=== PATIENT | female | born 1980 | race Caucasian/White ===

== ENCOUNTER 2020-12-25 08:47 | Emergency (ER) | payer SELFPAY ==
[~2020-12-25] VITALS: Ht 162.6 cm; Wt 68.0 kg
[2020-12-25] MEDS ORDERED: KETOROLAC TROMETHAMINE 30 MG/ML VIAL IV STA (09:00)
[2020-12-25] MEDS ORDERED: SODIUM CHLORIDE 0.9% 1000ML 1,000 ML IV SCH (09:00)
[2020-12-25] MEDS ORDERED: ACETAMINOPHEN 325 MG TAB PO ONE (09:00)
[2020-12-25] MEDS ORDERED: ACETAMINOPHEN 325 MG TAB ONE (09:20)
[2020-12-25] MEDS ORDERED: SODIUM CHLORIDE 0.9% 1000ML 1,000 ML ONE (09:20)
[2020-12-25] MEDS ORDERED: KETOROLAC TROMETHAMINE 30 MG/ML VIAL ONE (09:20)
[2020-12-25] MEDS ORDERED: CEFTRIAXONE SOD 1 GM/50 ML BAG IV ONE (09:30)
[2020-12-25] MEDS ORDERED: CEFTRIAXONE SOD 1 GM in SODIUM CHLORIDE 0.9% 50ML 50 ML IV ONE (09:30)
[2020-12-25 09:42] LABS: BASOPHILS % 0.3 % (0.0-1.0); EOSINOPHILS % 0.1 % (0.0-6.0); HEMATOCRIT 33.2 % (34.2-44.1); HEMOGLOBIN 10.7 g/dL (12.0-16.0); LYMPHOCYTES # (AUTO) 0.9 (1.0-3.2); LYMPHOCYTES % 5.8 % (18.0-39.1); MEAN CORPUSCULAR HEMOGLOBIN 25.1 pg (28-32); MEAN CORPUSCULAR HGB CONC 32.2 g/dL (31-35); MEAN CORPUSCULAR VOLUME 77.9 fL (81-99); MONOCYTES # (AUTO) 1.6 (0.2-0.8); MONOCYTES % 10.4 % (4.4-11.3); NEUTROPHILS # (AUTO) 12.4 (2.1-6.9); NEUTROPHILS % 82.9 % (38.7-80.0); PLATELET COUNT 250 x10e3/uL (140-360); RED BLOOD COUNT 4.26 x10e6/uL (3.6-5.1); RED CELL DISTRIBUTION WIDTH 18.6 % (11.7-14.4)
[2020-12-25 10:01] LABS: ALANINE AMINOTRANSFERASE 49 IU/L (0-55); ALBUMIN 3.2 g/dL (3.5-5.0); ALBUMIN/GLOBULIN RATIO 0.8 (0.8-2.0); ALKALINE PHOSPHATASE 116 IU/L (40-150); ANION GAP 16.1 mmol/L (8-16); BLOOD UREA NITROGEN 9 mg/dL (7-26); BUN/CREATININE RATIO 13 (6-25); CALCIUM 8.8 mg/dL (8.4-10.2); CARBON DIOXIDE 24 mmol/L (22-29); CHLORIDE 98 mmol/L (98-107); CREATININE, SERUM 0.71 mg/dL (0.57-1.11); EST GLOMERULAR FILTRATION RATE > 60 ML/MIN (60-); GLUCOSE 111 mg/dL (74-118); POTASSIUM 3.1 mmol/L (3.5-5.1); SODIUM 135 mmol/L (136-145)
[2020-12-25] MEDS ORDERED: POTASSIUM CHLORIDE 10MEQ EA PO STA (10:03)
[2020-12-25 10:52] LABS: CLARITY,URINE SL CLOUDY (CLEAR); COLOR,URINE YELLOW (YELLOW); KETONES,URINE 1+ (NEGATIVE); LEUKOCYTE ESTERASE ,URINE SMALL (NEGATIVE); NITRITE,URINE POSITIVE (NEGATIVE); PROTEIN,URINE DIPSTICK 2+ (NEGATIVE); URINE UROBILINOGEN 0.2 mg/dL (0.2 - 1)
[2020-12-25 10:53] LABS: BACTERIA,URINE MANY /HPF; EPITHELIAL CELLS,URINE RARE /LPF; WBC,URINE (MAN) 21-50 /HPF (0-5)
[2020-12-25] MEDS ORDERED: CEFPODOXIME PR200 MG PO (11:09)
[2020-12-25] MEDS ORDERED: ONDANSETRON ODT4 MG PO (11:09)
[2020-12-25] MEDS ORDERED: ULTRAM50 MG PO (11:10)
== END 2020-12-25 11:45 | disposition home or self-care (01) ==
LOC: ER 09:07
DX: R50.9 Fever, unspecified (principal); R11.2 Nausea with vomiting, unspecified; N11.1 Chronic obstructive pyelonephritis; R05 Cough; R53.1 Weakness; R53.83 Other fatigue
CPT/HCPCS: 36415; 71045; 80053; 81001; 83605; 84702; 85025; 87086; 87186; 99284; J0696; J1885; J7030; U0002

== ENCOUNTER 2023-01-31 21:05 | Emergency (ER) | payer SELFPAY ==
[~2023-01-31] VITALS: Ht 162.6 cm; Wt 68.0 kg
[~2023-01-31 21:05] MED LIST: CEFPODOXIME PR200 MG PO; ONDANSETRON ODT4 MG PO; ULTRAM50 MG PO
[2023-01-31 21:18] VITALS: O2SAT 100
[2023-01-31] MEDS ORDERED: AUGMENTIN 500-1 EACH PO (21:30)
[2023-01-31] MEDS ORDERED: ULTRAM 50MG50 MG PO (21:30)
[2023-01-31] MEDS ORDERED: ONDANSETRON ODT4 MG PO (21:30)
[2023-01-31] MEDS ORDERED: PREDNISONE20 MG PO (21:30)
== END 2023-01-31 21:39 | disposition home or self-care (01) ==
LOC: ER 21:14
DX: L03.116 Cellulitis of left lower limb (principal); L03.115 Cellulitis of right lower limb
CPT/HCPCS: 36415; 82948; 99283